=== PATIENT | female | born 1970 | race Caucasian/White ===

== ENCOUNTER 2022-06-11 00:35 | Day surgery (SDC) | payer OTHER, SELFPAY ==
[2022-01-10 15:08] VITALS: BMI 34.0
--- NOTE | 2022-01-10 15:10 | SUR.PREOP ---
Report to the Outpatient Waiting Room, entrance under the green pavilion located off [facility], at time _0600 _ on date _01/22/22 . OR Time: . - You and your visitor will be asked a series of questions to screen for COVID 19 for your protection. - A mask is required within the hospital. Preoperative COVID Testing Requirements: No COVID Test needed if: (proof is required; if not received patient will have Rapid Test prior to entry) - Patient has received COVID Vaccine at least 14 days prior to procedure date or - Patient has positive COVID test result within last 90 days of surgery date. COVID Test needed if above criteria is not met If not COVID vaccinated a COVID test must be conducted within 72 hours of surgery and patient is asked to isolate self from time of testing until procedure. You will go to the [employer] [facility] for your COVID testing. The [employer] [facility] site is located at the corner of [address] [facility]. You will only be called if COVID results are positive and your surgeon may reschedule your elective surgery date. Patients may have clear liquids (water, carbonated beverages, clear teas, apple juice) until 3 hours prior to surgery with a maximum of 20 ounces. - No food from midnight until time of surgery - Infants may have breast milk until 4 hours before surgery, infant formula 6 hours prior to surgery. - Children will be allowed to drink immediately following surgery. If applicable, please bring a bottle or sippy cup to assist with drinking. Juice, water, soda, and popsicles are readily available. For infants on formula, please bring formula the day of surgery. Pacifiers are allowed. Take the following medications with a SIP of water the morning of surgery: ___n/a Medications to discontinue per physician n/a Date to take last dose__n/a Please no make-up, nail burundian, hairspray, perfume, deodorant, or body powder the day of surgery. No jewelry (including any body piercings) or valuables the day of surgery, leave them at home. Please take a shower or bath the night before, or the morning of, surgery with an antibacterial soap. Wear comfortable, loose fitting clothing. Children are encouraged to wear pajamas. - Jewelry must be removed prior to entering the operating room. Rings and piercings that are not removed may be cut off. - The hospital will not accept responsibility for valuables. - Please leave all valuables, including medications, at home the day of surgery. If you are going home after surgery, a licensed school bus driver/mechanic must drive you home. - NO public transportation without another adult. - We recommend that an adult stay with you for 24 hours following discharge. - We also recommend that you do not drive, make important decision, drink alcoholic beverages, or take any drugs that were not prescribed by your health care provider for at least 24 hours after your discharge time. For Pediatric surgeries, we recommend two adults accompany the child home (only one inside the building at this time). One visitor will be allowed to accompany the patient into the hospital. Patients visitor will be instructed to remain with patient at all times or leave the building. We will allow the visitor to come back to the postoperative area when patient is ready. Follow any additional instructions given to you from your surgeon. Telephone instructions given to stormy mcfarland__and asked if any additional questions and then verbalized understanding. Patient advised to call surgeon office or pre surgery nurse liaison [phone] if any additional questions.
--- NOTE | 2022-06-05 15:09 | SUR.PREOP ---
Report to the Outpatient Waiting Room, entrance under the green pavilion located off [facility], at time 0830 on date 06/11/22. OR Time: 1030. - You and your visitor will be asked a series of questions to screen for COVID 19 for your protection. - Only one visitor is allowed at this time. - The patient visitor is requested to leave or wait in car when not with patient. - A mask is required within the hospital. Patients may have clear liquids (water, carbonated beverages, clear teas, apple juice) until 3 hours prior to surgery with a maximum of 20 ounces. - NO CLEAR LIQUIDS AFTER 0730 - No food from midnight until time of surgery - Infants may have breast milk until 4 hours before surgery, infant formula 6 hours prior to surgery. - Children will be allowed to drink immediately following surgery. If applicable, please bring a bottle or sippy cup to assist with drinking. Juice, water, soda, and popsicles are readily available. For infants on formula, please bring formula the day of surgery. Pacifiers are allowed. Take the following medications with a SIP of water the morning of surgery: VALACYCLOVIR, VENLAFAXINE, ZOFRAN Please no make-up, nail comoran, hairspray, perfume, deodorant, or body powder the day of surgery. No jewelry (including any body piercings) or valuables the day of surgery, leave them at home. Please take a shower or bath the night before, or the morning of, surgery with an antibacterial soap. Wear comfortable, loose fitting clothing. Children are encouraged to wear pajamas. - Jewelry must be removed prior to entering the operating room. Rings and piercings that are not removed may be cut off. - The hospital will not accept responsibility for valuables. - Please leave all valuables, including medications, at home the day of surgery. If you are going home after surgery, a licensed bus van driver must drive you home. - NO public transportation without another adult. - We recommend that an adult stay with you for 24 hours following discharge. - We also recommend that you do not drive, make important decision, drink alcoholic beverages, or take any drugs that were not prescribed by your health care provider for at least 24 hours after your discharge time. For Pediatric surgeries, we recommend two adults accompany the child home (only one inside the building at this time). Follow any additional instructions given to you from your surgeon. If you or anyone in your household have experienced Covid symptoms in the past week, please notify your surgeon or the nurse liaison at the phone number below for possible testing. Telephone instructions given to KIKO PANCHAL and asked if any additional questions and then verbalized understanding. Patient advised to call surgeon office or pre surgery nurse liaison [phone] if any additional questions.
[2022-06-11] VITALS (14 sets, daily range): BP systolic 105–179; BP diastolic 62–94; PULSE 72–107; RESP 10–20; TEMP 36.8–37.2; O2SAT 95–100
--- NOTE | 2022-06-11 07:15 | W.PM.PROC2 ---
Procedure Note - Detailed Date of Procedure 06/11/22 Pre-op Diagnosis Skin Laxity of face Post-op Diagnosis Same Procedure Performed Face / Neck lift Surgeon Javier Branham MD Anesthesia General Description of Procedure Preoperatively the risks, benefits, alternatives were discussed in extensive detail. I want her to be very realistic about the risks involved as well as expectations. Reviewed what we can and cannot accomplish. Realistic expectations of outcome. All questions were answered to satisfaction. Consent obtained. Taken to the operating room placed supine on the operating room table. Anesthesia provided by anesthesiology. Prepped and draped in standard sterile fashion. Surgical time-out was taken. Local anesthesia was provided with a tumescent solution using lidocaine, epinephrine, and TXA. Once adequate time for effect a fifteen blade used to make a submental incision. Dissection was continued down identified platysma muscle. Elevated skin flaps with good adiposity of the deep surface throughout the neck. Excess preplatysmal fat was removed. I then went sub platysmal and deep fat of the small portion. Care was taken to make sure there was a good smooth contour under the submental area. There really was minimal protrusion of the submandibular glands noted. I plicated the digastric muscle with 2-0 Vicryl. I then slightly trimmed the platysma muscle and imbricated as with vertical mattress sutures using 2-0 Vicryl in multiple layers. Also completed inferior platysmal release with no evidence of neurovascular or other structure injury. I then proceeded made the remainder of the incisions. I elevated skin flaps with good adequate adiposity of the deep surface to have good contour. This was continued for all the areas necessary for mobilization. Next Platysma plication was completed in multiple layers using 2-0 Vicryl bilateral. This is an oblique fashion from the angle towards the malar prominence. Copious irrigated with saline solution and verified strict hemostasis. I placed 10 Adam drains the right 1 went subcutaneous left 1 a broad around under the platysma muscle. These drains were sutured in place postauricular with this 3-0 Vicryl. The skin flaps were just placed into position without any tension. Trimmed as necessary. Preauricular was closed with 5 0 nylon. Postauricular with 5 0 chromic. I did chintan in the hairline. Submental was closed using 3-0 Monocryl followed by running subcuticular 4-0 Monocryl and tissue glue. Dressings were placed. Patient was awoken without difficulty. All instrument sponge counts were correct at the end of the case. Estimated Blood Loss 50 Drains No Packing No Pathology None sent Complications No immediate complications Condition Stable Disposition PACU
--- NOTE | 2022-06-11 08:56 | ECG_ITS ---
Measurements Intervals [place] Rate: 64 P: 18 HI: 148 QRS: -9 QRSD: 86 T: 5 QT: 375 QTc: 387 Interpretive Statements SINUS RHYTHM POSSIBLE ANTERIOR MYOCARDIAL INFARCTION , OF INDETERMINATE AGE [30 ms Q WAVE IN V3/V4, OR R < 0.2 mV IN V4] NONSPECIFIC T-WAVE ABNORMALITY ABNORMAL ECG NO PREVIOUS ECG AVAILABLE FOR COMPARISON Electronically Signed On 06-11-2022 12:06:47 CDT by Aguilar Issa M.D.
[2022-06-11] MEDS: LACTATED RINGERS 1,000 ML 30 ML IV CONT ×2 (09:17→14:28)
--- NOTE | 2022-06-11 09:18 | WPDHPUPDATE1 ---
History and Physical Update Update Date/Time: 06/11/22 09:18 History and Physical has been reviewed, including an updated exam of the patient. There are NO changes in the patient's condition. Risks, benefits, and alternatives have been discussed and questions answered. Patient agrees to proceed with procedure.
[2022-06-11 09:24] LABS: Hemoglobin 13.1 g/dL (12.0-15.0)
[2022-06-11 09:25] LABS: Urine Cotinine NEGATIVE
--- NOTE | 2022-06-11 09:32 | WPDANESEPPF ---
Anes - Initial Pre Proc Eval Procedure: Operation Date: 06/11/22 10:30 Proposed Procedures p Face and Neck Lift - Javier Branham MD Date/Time: 06/11/22 09:32 Surgeon: Javier Branham MD Pre Op Diagnosis: Skin Laxity of face Patient Data Age: 52 Gender: F Height: 1.55 m Weight: 79.1 kg Last Vital Signs Temp 98.3 F 06/11/22 08:58 Pulse 72 06/11/22 08:58 Resp 16 06/11/22 08:58 BP 120/85 06/11/22 08:58 Pulse Ox 100 06/11/22 08:58 O2 Del Method Room Air 06/11/22 08:58 Allergies Allergy/AdvReac Type Severity Reaction Status Date / Time No Known Allergies Allergy Verified 06/11/22 08:45 Home Medications Medication Instructions Recorded Confirmed Type melatonin 10 mg capsule 10 mg PO HS PRN Insomnia 10/16/20 06/11/22 History oxycodone-acetaminophen 5 mg-325 1 tablet PO Q6H PRN pain #30 tabs 05/15/22 06/05/22 Rx mg tablet (Percocet) valacyclovir 1 gram tablet 1,000 mg PO DAILY #7 tabs 05/15/22 06/11/22 Rx ondansetron 4 mg disintegrating 4 mg PO Q8H PRN Nausea 06/05/22 01/10/22 History tablet venlafaxine 75 mg capsule,extended 75 mg PO DAILY 06/05/22 06/11/22 History release 24 hr Laboratory Tests 06/11/22 06/11/22 08:49 09:09 Hgb 13.1 g/dL g/dL (12.0-15.0) Hct 41.0 % % (37.0-47.0) Cotinine Negative Patient hx anesthesia problems: none Family hx anesthesia problems: none Results Review: All pre-operative results and documents have been reviewed as part of the pre-operative evaluation. [facility] Past Medical History Medical History Arthritis Surgical History Surgical History History of breast augmentation 2011 History of delivery 1985, 1988 History of tubal ligation 1989 Family History Family History Mother COPD (chronic obstructive pulmonary disease) Grandparent Lung cancer Social History Social History Smoking status: Never smoker Alcohol intake: current Alcohol use details: rarely Substance use: never Living arrangements: with family Spiritual care concerns: No Anes - Eval Final PreProcedure Day of Procedure 06/11/22 09:32 Patient weight: obese Heart: regular rate and rhythm Lungs: clear to auscultation Airway: Mallampati scale class II Neurological: alert and oriented Last oral intake: >/= 8 hours ASA classification: II Emergent: no Anesthetic plan: proceed Anesthesia type and monitoring: general ETT and standard monitoring Results Review: All pre-operative results and documents have been reviewed as part of the pre-operative evaluation. Informed Consent: The patient's anesthetic plan and its attendant risks and benefits were discussed with the patient/family/POA. Questions were solicited and answers provided to the satisfaction of the patient/family/POA.
[2022-06-11] MEDS: ceFAZolin 2 GM/D5W 50 ML 2 GM/50 ML BAG IVPB (09:35)
[2022-06-11] MEDS: TRANEXAMIC ACID 1,000MG/ISO100 1,000 MG/100 ML BAG 200 MG IVPB (09:59)
[2022-06-11] MEDS: BALANCED SALT SOLN OPHTH IRRIG 30 ML BTL EACH EYE (14:34)
--- NOTE | 2022-06-11 15:00 | SUR.PHASEI ---
Dr. eHrnandez came to the PACU to assess patient himself and placed an oral airway. O2 sats, HR, and BP look better after oral airway placed.
[2022-06-11] MEDS: fentaNYL CITRATE INJ (*CRX) 100 MCG/2 ML VIAL 25 MCG IV PUSH (15:48)
--- NOTE | 2022-06-11 16:33 | ADMGEN ---
This patient, Daphney Antonio, was transferred to room #279 per bed from PACU.
[2022-06-11] MEDS: LACTATED RINGERS 1,000 ML 125 ML IV CONT (17:10)
[2022-06-11] MEDS: MORPHINE SULFATE (*CRX) 2 MG/ML INJ IV PUSH (17:11)
[2022-06-11] MEDS: DOCUSATE SODIUM 100 MG CAPSULE PO (20:15)
[2022-06-11] MEDS: carisoprodoL (*CRX) 350 MG TABLET PO (20:15)
[2022-06-11] MEDS: oxyCODONE/ACETAMINOPHEN (*CRX) 5-325 MG TABLET PO (20:26)
[2022-06-12] MEDS: MORPHINE SULFATE (*CRX) 2 MG/ML INJ IV PUSH ×2 (00:55→05:31)
[2022-06-12] MEDS: carisoprodoL (*CRX) 350 MG TABLET PO ×2 (00:56→07:06)
[2022-06-12] MEDS: oxyCODONE/ACETAMINOPHEN (*CRX) 5-325 MG TABLET PO (04:35)
[2022-06-12 04:37] VITALS: BP 100/56; PULSE 78; RESP 18; TEMP 36.9
--- NOTE | 2022-06-12 06:51 | WPDPN ---
Progress Note: A&P Assessment and Plan (1) Encounter for cosmetic surgery: Code(s): Z41.1 - Encounter for cosmetic surgery Status: Acute Assessment and Plan: She is doing very well after face and neck lift. Will discharge home. I will see her back. Today we had a lengthy discussion about her care. What to monitor for. Activity limitations. She will call with any questions or concerns. We will see her back. 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 Facial nerve intact. Subjective Date/time seen: 06/12/22 06:31 Interval history: She is doing very well after face and neck lift. Ambulating. Pain controlled. Tolerating diet. No fevers or chills. No nausea vomiting. No shortness of breath. No chest pain. No calf tenderness. Review of Systems Review of Systems: All systems reviewed & are unremarkable except as noted in HPI and below Exam Narrative: Alert and oriented no obvious distress Respiratory and labor She has full facial smile. Facial nerve intact. Skin flaps have good color and capillary refill. No signs of infection. No hematoma. No seroma. No calf tenderness. Negative Homans. Objective Data Vital Signs Vital Signs: Vital Signs - 24 hr 06/11/22 08:58 06/11/22 14:28 06/11/22 14:40 Temperature 36.8 C 37.2 C Pulse Rate 72 94 103 H Respiratory Rate 16 14 20 Blood Pressure 120/85 156/89 H 177/94 H Pulse Oximetry 100 100 96 Oxygen Delivery Room Air Simple Face Mask Simple Face Mask Oxygen Flow Rate 8 10 06/11/22 14:55 06/11/22 15:08 06/11/22 15:25 Temperature Pulse Rate 107 H 103 H 87 Respiratory Rate 12 10 L 16 Blood Pressure 179/79 H 141/84 H 146/80 H Pulse Oximetry 99 95 100 Oxygen Delivery Simple Face Mask Simple Face Mask Simple Face Mask Oxygen Flow Rate 10 10 10 06/11/22 15:40 06/11/22 15:55 06/11/22 16:10 Temperature Pulse Rate 90 81 81 Respiratory Rate 16 14 16 Blood Pressure 136/86 131/81 139/80 Pulse Oximetry 97 97 97 Oxygen Delivery Room Air Nasal Cannula Nasal Cannula Oxygen Flow Rate 2 2 06/11/22 16:35 06/11/22 16:35 06/11/22 19:23 Temperature 36.8 C Pulse Rate 83 Respiratory Rate 14 Blood Pressure 119/73 Pulse Oximetry 97 97 97 Oxygen Delivery Nasal Cannula Nasal Cannula Oxygen Flow Rate 2 2 06/11/22 20:15 06/11/22 20:30 06/11/22 23:07 Temperature 36.8 C Pulse Rate 81 Respiratory Rate 16 Blood Pressure 112/70 Pulse Oximetry 98 98 Oxygen Delivery Room Air Room Air Oxygen Flow Rate 06/11/22 23:10 06/12/22 04:37 06/12/22 04:37 Temperature 36.8 C 36.9 C Pulse Rate 78 78 Respiratory Rate 16 18 Blood Pressure 105/62 100/56 L Pulse Oximetry Oxygen Delivery Room Air Oxygen Flow Rate Intake/Output Intake/Output: Intake & Output 06/09/22 06/10/22 06/11/22 06/12/22 23:59 23:59 23:59 23:59 Intake Total 1500 1450 Output Total 552 822 Balance 949 628 Meds/Results Medications: Active Medications Generic Name Dose Route Start Last Admin Trade Name Freq PRN Reason Stop Dose Admin Carisoprodol 350 mg 06/11/22 18:00 06/12/22 00:56 Carisoprodol (*Crx) 350 Mg Tablet PO 350 mg Q6HR FERNANDO Administration Diazepam 5 mg 06/11/22 14:15 Diazepam (*Crx) 5 Mg Tablet PO TID PRN Anxiety Docusate Sodium 100 mg 06/11/22 21:00 06/11/22 20:15 Docusate Sodium 100 Mg Capsule PO 100 mg Q12HR FERNANDO Administration Morphine Sulfate 2 mg 06/11/22 14:15 06/12/22 05:31 Morphine Sulfate (*Crx) 2 Mg/Ml Inj IV PUSH 2 mg Q2H PRN Administration Pain Ondansetron HCl 4 mg 06/11/22 14:15 Ondansetron Inj 4 Mg/2 Ml Vial IV PUSH Q6H PRN Nausea Oxycodone/Acetaminophen 1 - 2 tablet 06/11/22 14:15 06/12/22 04:35 Oxycodone/Acetaminophen (*Crx) 5-325 Mg Tablet PO 1 tablet Q6H PRN Administrat
--- NOTE | 2022-06-12 06:54 | P.DS_ITS ---
DS: Admitting Diagnosis Discharge Date 06/12/2022 Admitting Diagnosis Encounter cosmetic surgery History Hdz's palsy DS: Discharge Diagnosis Discharge Diagnosis (1) Encounter for cosmetic surgery: Code(s): Z41.1 - Encounter for cosmetic surgery Status: Acute (2) Facial droop: Code(s): R29.810 - Facial weakness Status: Acute DS: Summary Hospital Course Hospital Course: She underwent face and neck lift. Postoperatively has done very well. Pain controlled. Ambulating. Tolerating diet. Will discharge home. Time Spent with Patient Time attestation: Total time spent providing and/or coordinating discharge services: 25 minutes Exam Narrative: Alert and oriented no obvious distress Respiratory and labor She has full facial smile. Facial nerve intact. Skin flaps have good color and capillary refill. No signs of infection. No hematoma. No seroma. No calf tenderness. Negative Homans. DS: Data Data Completed and Pending Labs on day of discharge: Labs from last 24 hours 06/11/22 06/11/22 09:09 08:49 Hgb 13.1 Hct 41.0 Cotinine Negative Discharge Plan Discharge Patient Disposition: Home, Self-Care Discharge Instructions: POST OPERATIVE DISCHARGE INSTRUCTIONS FOR JAVIER BRANHAM M.D. [facility] [address] [place] [address] * No driving for 24 hours after anesthesia and while you are taking pain medication. * Take all prescribed medication as directed * Diet as tolerated. * No lifting or activity that raises blood pressure for 48 hours. * Regular walking / ambulation. * No showering until directed to. Once you shower do not take pain medication before showering as the combination of medication and heat may cause you to feel dizzy or pass out. * No pools or tubs for 2 weeks. * Call with any questions or concerns. * Dressing Care: Continue compression 23 hours per day. If you have any questions or concerns, please call the office . If it is after hours you will be directed to the gynaecological oncologist exchange. Shortness of breath, chest pain, or other medical emergency dial 911 / proceed to the Emergency Room. Patient Instructions: [facility] (ED) Stand Alone Forms: General Discharge Instructions Follow-up/Referrals: Javier Branham MD [Physician] - 1 Week Discharge Medications: Continued oxycodone-acetaminophen [Percocet] 5-325 mg tablet 1 tablet PO Q6H PRN (Reason: pain) Qty: 30 0RF valacyclovir 1 gram tablet 1,000 mg PO DAILY Qty: 7 0RF melatonin 10 mg capsule 10 mg PO HS PRN (Reason: Insomnia) venlafaxine 75 mg capsule,extended release 24hr 75 mg PO DAILY ondansetron 4 mg tablet,disintegrating 4 mg PO Q8H PRN (Reason: Nausea)
[2022-06-12 08:00] VITALS: BP 103/48; PULSE 74; RESP 18; TEMP 36.8; O2SAT 99
[2022-06-12] MEDS: VENLAFAXINE HCL XR 75 MG CAP.ER.24H PO (09:09)
[2022-06-12] MEDS: DOCUSATE SODIUM 100 MG CAPSULE PO (09:09)
[2022-06-12] MEDS: valACYclovir HCL 500 MG TABLET 1000 MG PO (09:09)
--- NOTE | 2022-06-12 10:03 | WPDANESPN ---
Anes - Prog Note Post-Op Date/Time: 06/12/22 10:03 Cardiovascular status: normal Respiratory status: normal Airway patency: baseline Mental status: baseline Post-Op hydration status: normal Vital Signs: Last Vital Signs Temp 36.8 C 06/12/22 08:00 Pulse 74 06/12/22 08:00 Resp 18 06/12/22 08:00 BP 103/48 L 06/12/22 08:00 Pulse Ox 99 06/12/22 08:00 O2 Del Method Room Air 06/12/22 07:12 O2 Flow Rate 2 06/11/22 19:23 Pain Score (VAS): 2 I/O: Intake & Output 06/11/22 06/12/22 06/12/22 23:59 07:59 15:59 Intake Total 850 1450 Output Total 552 822 Balance 298 628 Laboratory Tests 06/11/22 09:09 Post-procedural complaints: none Patient Feedback: Patient satisfied with anesthetic care.
== END 2022-06-12 09:59 | disposition home or self-care (01) ==
LOC: ANHSURGERY 08:37 → ANHOB2 16:27
PROVIDERS: Anesthesiology; PCP Hospitalist; Visit Provider Surgery Plastic and Reconstructive Surgery
PROC: (CPT 15824; principal; 2022-06-11 10:30)
DX: Z41.1 Encounter for cosmetic surgery (principal); L57.4 Cutis laxa senilis; R29.810 Facial weakness; E66.9 Obesity, unspecified; Z68.32 Body mass index [BMI] 32.0-32.9, adult; Z86.69 Personal history of other diseases of the nervous system and sense organs; Z79.899 Other long term (current) drug therapy
CPT/HCPCS: 15825; 80307; 85014; 85018; 93005; 99199; A9270; J0171; J0330; J0690; J1100; J1200; J2250; J2270; J2405; J2704; J3010; J7030; J7120

== ENCOUNTER 2023-02-20 00:47 | Day surgery (SDC) | payer OTHER, SELFPAY ==
[2023-02-10 09:17] VITALS: BMI 30.2
--- NOTE | 2023-02-10 09:44 | SUR.PREOP ---
Report to the Outpatient Waiting Room, entrance under the green pavilion located off [facility], at time 0600 on date 02/20/23. Planned Procedure Time: 0730. Time changes happen often and if your time is changed the preop area will call you the afternoon before. - You and your visitor will be asked to self-screen and do not enter if you have any COVID symptoms. - A mask is optional within the hospital at this time. Patients may have clear liquids (water, carbonated beverages, clear teas, apple juice) until 3 hours prior to surgery with a maximum of 20 ounces. - No food from midnight until time of surgery - Infants may have breast milk until 4 hours before surgery, infant formula 6 hours prior to surgery. - Children will be allowed to drink immediately following surgery. If applicable, please bring a bottle or sippy cup to assist with drinking. Juice, water, soda, and popsicles are readily available. For infants on formula, please bring formula the day of surgery. Pacifiers are allowed. Take the following medications with a SIP of water the morning of surgery: venlafaxine if needed DO NOT STOP ANY OF YOUR OTHER PRESCRIPTION MEDICATIONS PRIOR TO SURGERY ?EXCEPT THE FOLLOWING Medications to discontinue per physician: stop all vitamins and suppliments 3 days prior Date to take last dose 02/17/23 Please no make-up, nail nicaraguan, hairspray, perfume, deodorant, or body powder the day of surgery. No jewelry (including any body piercings) or valuables the day of surgery, leave them at home. Please take a shower or bath the night before, or the morning of, surgery with an antibacterial soap. Wear comfortable, loose fitting clothing. Children are encouraged to wear pajamas. - Jewelry must be removed prior to entering the operating room. Rings and piercings that are not removed may be cut off. - The hospital will not accept responsibility for valuables. - Please leave all valuables, including medications, at home the day of surgery. If you are going home after surgery, a licensed certified driver examiner must drive you home. - NO public transportation without another adult if you receive anesthesia. - We recommend that an adult stay with you for 24 hours following discharge. - We also recommend that you do not drive, make important decision, drink alcoholic beverages, or take any drugs that were not prescribed by your health care provider for at least 24 hours after your discharge time. For Pediatric surgeries, we recommend two adults accompany the child home. Follow any additional instructions given to you from your surgeon. If you or anyone in your household have experienced Covid symptoms in the past week, please notify your surgeon or the nurse liaison at the phone number below for possible testing. Telephone instructions given to KIKO PANCHAL and asked if any additional questions and then verbalized understanding. Patient advised to call surgeon office or pre surgery nurse liaison [phone] if any additional questions.
[2023-02-20] VITALS (9 sets, daily range): BP systolic 113–142; BP diastolic 63–80; PULSE 67–101; RESP 14–18; TEMP 36.1–36.5; O2SAT 92–100
--- NOTE | 2023-02-20 06:41 | WPDANESEPPF ---
Anes - Initial Pre Proc Eval Procedure: Operation Date: 02/20/23 07:30 Proposed Procedures p Revision Face and Neck Lift - Javier Branham MD Date/Time: 02/20/23 06:41 Surgeon: Javier Branham MD Pre Op Diagnosis: Hx of face and neck lift Patient Data Age: 52 Gender: F Height: 1.55 m Weight: 73.2 kg Allergies Allergy/AdvReac Type Severity Reaction Status Date / Time No Known Allergies Allergy Verified 02/20/23 06:26 Home Medications Medication Instructions Recorded Confirmed Type melatonin 10 mg capsule 10 mg PO HS PRN Insomnia 10/16/20 02/20/23 History oxycodone-acetaminophen 5 mg-325 1 tablet PO Q6H PRN pain #30 tabs 05/15/22 02/20/23 Rx mg tablet (Percocet) valacyclovir 1 gram tablet 1,000 mg PO DAILY #7 tabs 05/15/22 02/20/23 Rx ondansetron 4 mg disintegrating 4 mg PO Q8H PRN Nausea 06/05/22 02/20/23 History tablet venlafaxine 75 mg capsule,extended 75 mg PO DAILY 06/05/22 02/20/23 History release 24 hr cephalexin 500 mg capsule 500 mg PO Q8H #21 caps 06/21/22 02/20/23 Rx Vitamin D (with calcium) 1 cap PO DAILY 02/10/23 02/20/23 History ezetimibe 10 mg tablet 10 mg PO DAILY 02/10/23 02/20/23 History Patient hx anesthesia problems: other (states difficulty intub) Family hx anesthesia problems: none Results Review: All pre-operative results and documents have been reviewed as part of the pre-operative evaluation. [facility] Past Medical History Medical History Arthritis Surgical History Surgical History History of breast augmentation 2011 History of delivery 1985, 1988 History of tubal ligation 1988 Family History Family History Mother COPD (chronic obstructive pulmonary disease) Grandparent Lung cancer Social History Social History Smoking status: Never smoker Alcohol intake: current Alcohol use details: rarely Substance use: never Living arrangements: with family Spiritual care concerns: No Anes - Eval Final PreProcedure Day of Procedure 02/20/23 06:41 Patient weight: overweight Heart: regular rate and rhythm Lungs: clear to auscultation Airway: Mallampati scale class II Neurological: alert and oriented Last oral intake: >/= 8 hours ASA classification: II Emergent: no Anesthetic plan: proceed Anesthesia type and monitoring: general ETT and standard monitoring Other findings: use elective glidescope to intub Results Review: All pre-operative results and documents have been reviewed as part of the pre-operative evaluation. Informed Consent: The patient's anesthetic plan and its attendant risks and benefits were discussed with the patient/family/POA. Questions were solicited and answers provided to the satisfaction of the patient/family/POA.
[2023-02-20] MEDS: LACTATED RINGERS 1,000 ML 30 ML IV CONT ×2 (06:57→11:32)
[2023-02-20] MEDS: SCOPOLAMINE 1.5 MG PATCH TRANSDERM (06:58)
[2023-02-20 06:59] LABS: Urine Cotinine NEGATIVE
--- NOTE | 2023-02-20 07:10 | WPDHPUPDATE1 ---
History and Physical Update Update Date/Time: 02/20/23 07:10 History and Physical has been reviewed, including an updated exam of the patient. There are NO changes in the patient's condition. Will plan to proceed with revision face/neck lift and facial fat grafting. Risks, benefits, and alternatives have been discussed and questions answered. Patient agrees to proceed with procedure.
[2023-02-20] MEDS: ceFAZolin 2 GM/D5W 50 ML 2 GM/50 ML BAG IVPB (07:29)
[2023-02-20] MEDS: BACITRACIN OINTMENT 15 GM TUBE 1 APPLIC TOPICAL (07:29)
[2023-02-20] MEDS: TRANEXAMIC ACID 1,000MG/ISO100 1,000 MG/100 ML BAG 200 MG IVPB (07:45)
[2023-02-20] MEDS: NEOMYCIN/POLYMYXIN/BACITRACIN OPHTH OINTMENT 3.5 GM TUBE 1 APPLIC EACH EYE (10:21)
[2023-02-20] MEDS: fentaNYL CITRATE INJ (*CRX) 100 MCG/2 ML VIAL 25 MCG IV PUSH ×8 (11:25→12:23)
--- NOTE | 2023-02-20 11:27 | W.PM.PROC2 ---
Procedure Note - Detailed Date of Procedure 02/20/23 Pre-op Diagnosis Hx of face and neck lift Post-op Diagnosis Same Procedure Performed Revision face / neck lift Facial fat grafting Surgeon Javier Branham MD Anesthesia General Description of Procedure Preoperatively the risks, benefits, alternatives were discussed in extensive detail. I want her to be very realistic about the risks involved as well as expectations. Reviewed what we can and cannot accomplish and explained she will always have settling and will never be completely tight over time. She states the fullness right cheek / discomfort has significantly improved; however, she notes decreased left cheek volume with a slight depression and would like to fat graft. Realistic expectations of outcome discussed. All questions were answered to satisfaction. Consent obtained. Taken to the operating room placed supine on the operating room table. Anesthesia provided by anesthesiology. Prepped and draped in standard sterile fashion. Surgical time-out was taken. Local anesthesia was provided with a tumescent solution using lidocaine, epinephrine, and TXA. Stab incision with 14 gauge made at umbilicus. Suction lipectomy completed a with 3mm single hole cannula on hand liposuction wtih 10cc syringe. This was allowed to gravity separate until use later in the procedure. Once adequate time for effect a fifteen blade used to make a submental incision. Dissection was continued down identified platysma muscle. Elevated skin flaps with good adiposity of the deep surface throughout the neck. I then went sub platysmal and elevated bilateral. I did not remove any submental fat. There was adipose superifical to the digastric which was removed. Bilateral submandibular glands were identfied to be slightly ptotic and incised the capsule removing just excess bulk. Strict hemostasis was maintained throughout with no evidence of neurovascular injury. I plicated diagastric 2-0 PDS. Platysma muscle was secured at the level of the hyoid with a 2-0 PDS. I completed platysmal transection at the midline at the level of the hyoid and repaired the platysma inferior with running 2-0 PDS. The submental platysma was repaired with 2-0 PDS securing to the deep fascia. I then proceeded made the remainder of the incisions. I elevated skin flaps with good adequate adiposity of the deep surface to have good contour. This was continued for all the areas necessary for mobilization. I created a platysmal hammock by elevating the platysma from sternocleidomastoid anterior with care taken to protect deep structure / marginal mandibular nerve. Also transected Platysma transversely just inferior to mandibular border monitoring for marginal mandibular nerve. Platysma was advanced laterally tension free and secured to mastoid fascia with 2-0 PDS Copious irrigated with saline solution and verified strict hemostasis. I placed a [address] drain sut[address] in place postauricular with this 3-0 Vicryl. The skin flaps were just placed into position without any tension. Trimmed as necessary. Lobule repaired with 5-0 nylon. Postauricular with 5-0 chromic. Submental was closed using 4-0 Monocryl followed by running subcuticular 5-0 Nylon. Using an 18 guage stab incisions made for fat grafting. Fat was prepared with a micrograft kit to 1.2microns. This was placed in the following volumes: 4 cc left malar 2 cc left mandibular border 2 cc right mandibular boarer 1 cc submental. Dressings were placed. Patient was awoken without difficulty. All instrument sponge counts were correct at the end of the case. Estimated Blood Loss 30 Drains No Packing No Pathology None sent Complications No immediate complications Condition Stable Disposition PACU
[2023-02-20] MEDS: ONDANSETRON INJ 4 MG/2 ML VIAL IV PUSH (12:46)
[2023-02-20] MEDS: oxyCODONE HCL (*CRX) 5 MG TAB IR PO (13:32)
== END 2023-02-20 13:40 | disposition home or self-care (01) ==
PROVIDERS: Visit Provider Surgery Plastic and Reconstructive Surgery
PROC: (CPT 15824; principal; 2023-02-20 07:30)
DX: Z41.1 Encounter for cosmetic surgery (principal); Z79.899 Other long term (current) drug therapy
CPT/HCPCS: 15825; 15773; 80307; A9270; J0171; J0690; J1100; J2250; J2405; J2704; J3010; J7030; J7120